=== PATIENT | male | born 1965 | race Caucasian/White ===

== ENCOUNTER 2019-05-29 22:21 | Emergency (ER) | payer SELFPAY ==
[~2019-05-29] VITALS: Ht 157.5 cm; Wt 81.6 kg
--- NOTE | 2019-05-29 22:40 | NUR ---
C/O R HAND PAIN S/P CLOSED ON CAR SLIDING DOOR X1HR [employer]. PATIENT A/OX4, BREATHING EVEN AND UNLABORED, NO SOB NOTED, MINIMAL BLEEDING NOTED ON RIGHT HAND. KEPT ELEVATED. NEEDS ATTENDED. ATTACHED TO THE [employer].
[2019-05-29] MEDS ORDERED: IBUPROFEN 600 MG TABLET PO ONE ×2 (23:00→23:04)
--- NOTE | 2019-05-29 23:41 | NUR ---
RIGHT FINGER COVERED WITH BANDAGE. PATIENT IN NO DISTRESS NOTED. Patient discharged to home in stable condition. Written and verbal after care instructions given. Patient verbalizes understanding of instruction.
[2019-05-29 23:42] VITALS: BP 138/94
== END 2019-05-29 23:42 | disposition home or self-care (01) ==
LOC: ER 22:44
DX: S61.210A Laceration without foreign body of right index finger without damage to nail, initial encounter (principal); M79.644 Pain in right finger(s); W26.8XXA Contact with other sharp object(s), not elsewhere classified, initial encounter; Y93.89 Activity, other specified; Y92.89 Other specified places as the place of occurrence of the external cause; Y99.8 Other external cause status
CPT/HCPCS: 73140; 99283; A6403